=== PATIENT | female | born 1955 | race Hispanic/Latino ===

== ENCOUNTER → 2021-09-14 | Outpatient (CLI) | payer BC ==
[~2021-09-14] MED LIST: LEXISCAN IV ONE
--- NOTE | 2021-09-14 12:27 | PCM.ECHO ---
APPROVED REPORT EXAM: Comprehensive 2D, Doppler, and color-flow Echocardiogram. Patient Location: OUT-PATIENT Indications Dyspnea Chest Pain 2D Dimensions LVOT Diameter 2.31 (1.8-2.4cm) LVEF(%) 58.72 (>50%) M-Mode Dimensions RVDd 1.55 (2.1-3.2cm) Left Atrium(MM) 3.75 (2.5-4.0cm) IVSd 1.05 (0.7-1.1cm) Aortic Root 2.70 (2.2-3.7cm) LVDd 4.90 (4.0-5.6cm) PWd 0.70 (0.7-1.1cm) MV EPSS 0.54 (<0.5cm) IVSs 1.50 cm FS (%) 31.70 % LVDs 3.30 (2.0-3.8cm) ESV(Teich) 45.62 ml PWs 1.65 cm LVEF(%) 59.59 (>50%) Volumes Biplane 2D LV Volumes Biplane 2D LA Volumes LVEDv A4C 79.27 mL LA ESV Index LVESv A4C 32.72 mL Aortic Valve AoV Peak Alistair. 1.30 m/s AoV VTI 30.45 cm AO Peak GR. 6.95 mmHg AO Mean GR. 4.15 mmHg LVOT VTI 25.09 cm LVOT Peak Alistair. 1.21 m/s MABLE(VTI)/BSA 3.44 cm2/m2 MABLE (VTI) 3.44 cm2 Mitral Valve MV E Velocity 0.90m/s MR Peak Gr. 13.45mmHg MV A Velocity 0.85m/s TDI Lateral E' P. V 0.11m/s Medial E' P. V 0.13m/s Pulmonary Valve PV Peak Velocity 1.15m/s PV Peak Grad. 5.60mmHg RVOT VTI 28.63cm Tricuspid Valve TR P. Velocity 2.50m/s RAP ESTIMATE 10.00mmHg TR Peak Gr. 25.20mmHg RVSP 35.20mmHg LEFT VENTRICLE The left ventricle is normal size. The left ventricular systolic function is normal. The left ventricular ejection fraction is within the normal range. There is normal left ventricular wall thickness. There is normal LV segmental wall motion. There is no ventricular septal defect visualized. No left ventricle thrombus noted on this study. LVEF is 65%. RIGHT VENTRICLE The right ventricle is normal size. The right ventricular systolic function is normal. There is normal right ventricular wall thickness. ATRIA The left atrium size is normal. The right atrium size is normal. The interatrial septum is intact with no evidence for an atrial septal defect. AORTIC VALVE The aortic valve is normal in structure. There is no aortic valvular stenosis. No aortic regurgitation is present. There is no aortic valvular vegetation. MITRAL VALVE The mitral valve is normal in structure. There is no mitral valve stenosis. Mild mitral regurgitation. There is no evidence of mitral valve vegetations. TRICUSPID VALVE The tricuspid valve is normal in structure. There is no tricuspid valve stenosis. Mild to moderate tricuspid regurgitation. There is no tricuspid valve vegetations. PULMONIC VALVE The pulmonary valve is normal in structure. There is no pulmonic valvular stenosis. There is no pulmonic valvular regurgitation. There is no pulmonic valve vegetations. GREAT VESSELS The aortic root is normal in size. The pulmonary artery is normal. Aortic arch is not well visualized. The IVC is normal in size and collapses >50% with inspiration. PERICARDIUM There is no pericardial effusion. There is no pleural effusion. Other Information Study Quality: Fair <Conclusion> The left ventricular systolic function is normal. LVEF is 65%. Mild mitral regurgitation. Mild to moderate tricuspid regurgitation. Electronically signed by : RAMNÓ FRENCH. 09/14/2021 12:26:47
--- NOTE | 2021-09-15 01:11 | STRESS ---
DATE OF SERVICE: 09/14/2021 DICTATOR NAME: RAMÓN LUCIANMichele CARDIAC STRESS TEST INDICATION: Chest pain. FINDINGS: Baseline EKG shows sinus bradycardia with a left bundle branch block. Stress EKG shows sinus tachycardia with a left bundle branch block. At the end of recovery, EKG shows normal sinus rhythm with a left bundle branch block. Baseline heart rate is 56 beats per minute and joey to 107 beats per minute during stress. At the end of recovery, the heart rate was 75 beats per minute. Baseline blood pressure is 122/63 and remained the same during stress. At the end of recovery, the blood pressure is 120/72. Blood pressure and heart rate were appropriate for stress. There were no significant symptoms noted during stress. There were no arrhythmias noted during stress. EKG portion of stress test is nondiagnostic due to underlying left bundle branch block. Nuclear images were obtained with a rest dose of 11.3 mCi technetium-99 sestamibi, and a stress dose of 33.9 mCi technetium 99 sestamibi. Nuclear images reveal a moderate-sized area of reversible perfusion defect involving the anterior wall suggestive of myocardial ischemia. There is no evidence of myocardial infarction. Left ventricular ejection fraction of 67%. EDV is 54 mL, ESV is 18 mL. The left ventricle is normal in size. Gated motion images showed normal wall motion across all segments of the left ventricle. TID is 1.45. There is no evidence of diaphragmatic attenuation artifact. IMPRESSION: 1. There is a moderate-sized area of reversible perfusion defect involving the anterior wall suggestive of myocardial ischemia. 2. There is no evidence of myocardial infarction. 3. This is an abnormal study. Recommend left heart catheterization. Skip BEDOYA D.O. DR: LANDEN TID: [id number] RECEIPT: [id number]
== END | disposition home or self-care (01) ==
LOC: RAD 10:24
PROVIDERS: ATTEND Internal Medicine Interventional Cardiology
DX: I08.1 Rheumatic disorders of both mitral and tricuspid valves (principal); R07.9 Chest pain, unspecified; R06.02 Shortness of breath
CPT/HCPCS: 78452; 93017; 93306; A9500; J2785

== ENCOUNTER → 2021-09-27 | Day surgery (SDC) | payer BC ==
[2021-09-24 11:48] VITALS: BP 122/63
[2021-09-24 12:07] LABS: BASOPHIL # 0.1 10^3/uL (0.0-0.1); BASOPHIL % 1.1 % (0.0-0.2); EOSINOPHIL # 0.2 10^3/uL (0.0-0.2); EOSINOPHIL % 3.1 % (0.0-5.0); LYMPHOCYTES % 39.6 % (24.0-44.0); MEAN CORP HGB 33.4 pg (26-34); MONOCYTES # 0.5 10^3/uL (0.3-0.8); MONOCYTES % 7.5 % (5.0-12.0); NEUTROPHIL # 3.4 10^3/uL (1.8-7.7); NEUTROPHILS % 48.6 % (41.0-85.0); PLATELET COUNT 263 10^3/uL (150-400); RED CELL DISTRIBUTION WIDTH 12.1 % (11.5-14.5)
--- NOTE | 2021-09-24 12:10 | PCM.EKG ---
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
[2021-09-24 12:32] LABS: CARBON DIOXIDE 27.3 mmol/L (20.0-32)
[2021-09-27] VITALS (9 sets, daily range): BP systolic 100–131; BP diastolic 49–75
[~2021-09-27] VITALS: Ht 157.5 cm; Wt 89.8 kg
[~2021-09-27] MED LIST changes: +CELE200C PO; -LEXISCAN IV ONE; +LISI5TAB18 PO; +METF500T17 PO; +NITR0.4T26 SL; +NS 1000ML 1,000 ML IV SCH; +ROSU5TAB PO; +SUBLIMAZE ONE; +VERSED ONE; +XYLOCAINE ONE
--- NOTE | 2021-09-27 13:56 | [facility] ---
DATE OF SERVICE: 09/27/2021 DICTATOR NAME: RAMÓN FRENCH DO INDICATIONS: Abnormal cardiac ischemic workup. This is a 66-year-old female who was evaluated in the outpatient setting and underwent cardiac ischemic workup that was noted to be abnormal. She was then set up for left heart catheterization after informed consents were obtained. PROCEDURES PERFORMED: 1. Selective coronary angiography. 2. Left ventriculography. 3. Hemostasis established using a 6-American MynxGrip. PROCEDURAL DETAILS: Access was obtained using a 4-American micropuncture kit to cannulate the right common femoral artery. The 4-American sheath was then upsized to a 6-American regular short sheath. Diagnostic angiography was then carried out using a Sanket left catheter to engage the left main. The left main was noted to be angiographically normal. It bifurcates into left anterior descending artery and the left circumflex artery. The left anterior descending artery is noted to have mild luminal irregularities. It runs in the interventricular groove to the apex to form a type 2 LAD. It gives rise to 4 diagonal branches that are noted to have mild luminal irregularities. The left circumflex artery is noted to be codominant with mild luminal irregularities. It gives rise to 4 obtuse marginal branches that are also noted to have mild luminal irregularities. The Sanket left catheter was then exchanged for a Sanket right catheter, which was used to engage the RCA. RCA angiography revealed a nondominant RCA with mild luminal irregularities. The Sanket right catheter was then exchanged for a pigtail catheter, which was used to cross the aortic valve into the left ventricle. Left ventriculography was performed. LVEF was noted to be 60%. LVEDP was noted to be 12. Upon pullback of the pigtail catheter, there was no gradient across the aortic valve. The pigtail catheter was then taken out and hemostasis was established using a 6-American MynxGrip. 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 There were no complications. IMPRESSION: 1. Nonobstructive coronary artery disease. 2. Selective coronary angiography. 3. Left ventriculography. 4. Left ventricular ejection fraction of 60%. 5. Left ventricular end-diastolic pressure of 12. 6. Hemostasis established using a 6-American MynxGrip. RECOMMENDATIONS: No coronary intervention is necessary at this time. Lifestyle modification factors have been strongly advised. The patient will be discharged home today to follow up with me in the office in 2 weeks. Skip BEDOYA D.O. DR: PATTY TID: [id number] RECEIPT: [id number]
== END | disposition home or self-care (01) ==
LOC: SDC 07:25
PROVIDERS: ATTEND Internal Medicine Interventional Cardiology
DX: I25.10 Atherosclerotic heart disease of native coronary artery without angina pectoris (principal); Z88.8 Allergy status to other drugs, medicaments and biological substances; Z82.49 Family history of ischemic heart disease and other diseases of the circulatory system; Z83.3 Family history of diabetes mellitus; Z80.8 Family history of malignant neoplasm of other organs or systems; Z87.891 Personal history of nicotine dependence; Z79.01 Long term (current) use of anticoagulants
CPT/HCPCS: 36415; 80053; 82948; 85025; 85610; 85730; 93005; 93458; 99152; 99153; C1769; C1894 ×2; J1644; J2250; J3010; Q9967

== ENCOUNTER → 2021-10-29 | Outpatient (CLI) | payer BC ==
[~2021-10-29] MED LIST changes: -NS 1000ML 1,000 ML IV SCH; -SUBLIMAZE ONE; -VERSED ONE; -XYLOCAINE ONE
--- NOTE | 2021-10-29 10:00 | DIREP ---
PROCEDURE:MRI SPINE LUMBAR W/O COMPARISON:None. INDICATIONS:CHRONIC LOW BACK PAIN, SCIATICA TECHNIQUE:A comprehensive examination was performed utilizing a variety of imaging planes and imaging parameters to optimize visualization of suspected pathology. Images were performed without intravenous gadolinium contrast. FINDINGS: ALIGNMENT:Minimal anterolisthesis L4 on L5. VERTEBRA:No fracture, pars defect, or osseous lesion. CORD/CAUDA EQUINA:Normal size, contour, and signal intensity. PARASPINAL AREA:Normal with no visible mass. OTHER:None. LUMBAR DISC LEVELS T12-L1:No significant disc/facet abnormality, spinal stenosis, or foraminal stenosis. L1-L2:Circumferential disc bulge with mild facet arthropathy. Mild bilateral neural foraminal narrowing and mild spinal canal narrowing. L2-L3:Circumferential disc bulge with moderate to advanced facet disease. Moderate to severe left and moderate right neural foraminal narrowing with moderate to severe spinal canal narrowing. L3-L4:Broad-based posterior disc bulge with advanced bilateral facet disease. Moderate to advanced left and moderate right neural foraminal narrowing. Moderate to severe spinal canal narrowing. L4-L5:Minimal anterolisthesis with uncovering of the posterior intervertebral disc and advanced bilateral facet disease. Moderate to severe spinal canal narrowing with moderate bilateral neural foraminal narrowing. L5-S1:Advanced bilateral facet disease with mild bilateral neural foraminal narrowing. CONCLUSION: 1. Neural foraminal narrowing, most pronounced: Left L3-L4 and left L2-L3, moderate to severe 2. Spinal canal narrowing, most pronounced: L2-L3 through L4-5, moderate to severe 3. Facet arthropathy, most pronounced: Bilateral L3-L4 and L4-5, severe 4. Minimal anterolisthesis L4 on L5. Dictated by: Beto Lorenzo DO on 10/29/2021 at 09:53 AM
== END | disposition home or self-care (01) ==
LOC: RAD 07:51
PROVIDERS: ATTEND Nurse Practitioner Family
DX: M47.816 Spondylosis without myelopathy or radiculopathy, lumbar region (principal); M48.061 Spinal stenosis, lumbar region without neurogenic claudication; M54.50 Low back pain, unspecified
CPT/HCPCS: 72148

== ENCOUNTER → 2022-01-07 | Outpatient (CLI) | payer BC ==
--- NOTE | 2022-01-08 03:32 | PRP ---
DATE OF PROCEDURE: 01/07/2022 DICTATOR NAME: RAMÓN FRENCH DO CAROTID DOPPLER ULTRASOUND INDICATION: Carotid artery disease. RIGHT CAROTID ARTERY SYSTEM: The right common carotid artery has a peak systolic velocity of 50 cm per second. The right internal carotid artery has a peak systolic velocity of 83 cm per second. The right external carotid artery has a peak systolic velocity of 83 cm per second. The right vertebral artery has a peak systolic velocity of 51 cm per second. Antegrade flow is visualized in the right vertebral artery. The right ICA/CCA ratio is 0.9. LEFT CAROTID ARTERY SYSTEM: The left common carotid artery has a peak systolic velocity of 55 cm per second. The left internal carotid artery has a peak systolic velocity of 91 cm per second. The left external carotid artery has a peak systolic velocity of 72 cm per second. The left vertebral artery has a peak systolic velocity of 54 cm per second. Antegrade flow is visualized in the left vertebral artery. The left ICA/CCA ratio is 0.95. IMPRESSION: 1. There is no evidence of hemodynamically significant stenosis in the left carotid artery system. 2. There is no evidence of hemodynamically significant stenosis in the right carotid artery system. 3. Bilateral ICA/CCA ratio are within normal limits. Skip BEDOYA D.O. DR: JARRETT DALTON: [id number] RECEIPT: [id number]
== END | disposition home or self-care (01) ==
LOC: RAD 14:16
PROVIDERS: ATTEND Nurse Practitioner Family
DX: R06.02 Shortness of breath (principal); R42 Dizziness and giddiness; R55 Syncope and collapse
CPT/HCPCS: 93880